=== PATIENT | female | born 1985 | race Caucasian/White ===

== ENCOUNTER 2021-06-24 16:49 | Emergency (ER) | payer OTHER ==
[2021-06-24] MEDS ORDERED: Sodium Chloride 0.9% 10 ML Syringe FLUSH PRN (17:45)
--- NOTE | 2021-06-24 18:20 | EDM.PDOC ---
ED HPI GENERAL MEDICAL PROBLEM - General Chief Complaint: Genitourinary Problem Stated Complaint: PAINFUL URINATION SENT BY [place] Time Seen by Provider: 06/24/21 17:12 Source of Information: Reports: Patient History Limitations: Reports: No Limitations, Other (ED vital signs reveal a temp of 97.9, pulse of 84, respiratory rate of 16, blood pressure 149/99, pulse ox 100% on room air) - History of Present Illness INITIAL COMMENTS - FREE TEXT/NARRATIVE: 36-year-old female presents the emergency department with complaints of urinary symptoms. She was diagnosed with a UTI 6 days ago at [facility] and started on Macrobid. She completed a 5-day course of this however her symptoms have not resolved over that period of time. She states she has had new onset flank pain bilaterally. She has suprapubic tenderness. She states she had chills today and rigors at lunchtime however she does not note any recorded temperature. She states that she has been nauseated but no vomiting. 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 ED EXAM, RENAL/ - Physical Exam Exam: See Below Exam Limited By: No Limitations General Appearance: Alert, WD/WN, No Apparent Distress Ears: Normal External Exam, Hearing Grossly Normal Nose: Normal Inspection Throat/Mouth: Normal Inspection, Normal Lips, Normal Voice, No Airway Compromise Head: Atraumatic Neck: Normal Inspection, Supple Respiratory/Chest: No Respiratory Distress, Lungs Clear, Normal Breath Sounds, No Accessory Muscle Use, Chest Non-Tender Cardiovascular: Normal Peripheral Pulses, Regular Rate, Rhythm, No Edema, No Murmur GI/Abdominal: Normal Bowel Sounds, Soft, No Distention. No: Non-Tender (Suprapubic tenderness) (Female) Exam: Deferred Rectal (Female) Exam: Deferred Back Exam: Normal Inspection, CVA Tenderness (L), CVA Tenderness (R) Extremities: Normal Inspection, Normal Range of Motion, Non-Tender, No Pedal Edema, Normal Capillary Refill Neurological: Alert, Oriented, Normal Cognition Psychiatric: Normal Affect, Normal Mood Skin Exam: Warm, Dry, Intact, Normal Color, No Rash Lymphatic: No Adenopathy Course - Vital Signs Text/Narrative:: Stated above 36-year-old female presents with urinary symptoms who just completed a 5-day course of Macrobid. Patient does have CVA tenderness bilaterally. She also has suprapubic tenderness noted. I have ordered a UA with micro and culture if indicated, we will order a CBC, CMP and a C-reactive protein. We will also obtain CT of the abdomen and pelvis without contrast to rule out stone and pyelonephritis. Last Recorded V/S: Last Vital Signs Temp 97.9 F 06/24/21 17:09 Pulse 84 06/24/21 17:09 Resp 16 06/24/21 17:09 BP 149/99 H 06/24/21 17:09 Pulse Ox 100 06/24/21 17:09 - Orders/Labs/Meds Orders: Active Orders 24 hr Category Date Time Status Sodium Chloride 0.9% [Saline Flush] Med 06/24/21 17:45 Active 10 ml FLUSH ASDIRECTED PRN Saline Lock Insert [OM.PC] Stat Oth 06/24/21 17:45 Ordered Medication Orders Sodium Chloride (Sodium Chloride 0.9% 10 Ml Syringe) 10 ml FLUSH ASDIRECTED PRN PRN Reason: Keep Vein Open Last Admin: 06/24/21 19:31 Dose: 10 ml Documented by: PUNEET Labs: Laboratory Tests 06/24/21 06/24/21 06/24/21 Range/Units 17:20 17:20 17:54 WBC 8.40 (3.98-10.04) K/mm3 RBC 4.64 (3.98-5.22) M/mm3 Hgb 13.5 (11.2-15.7) gm/dl Hct 41.6 (34.1-44.9) % MCV 89.7 (79.4-94.8) fl MCH 29.1 (25.6-32.2) pg MCHC 32.5 (32.2-35.5) g/dl RDW Std Deviation 47.0 H (36.4-46.3) fL Plt Count 256 (182-369) K/mm3 MPV 11.9 (9.4-12.3) fl Neut % (Auto) 68.0 (34.0-71.1) % Lymph % (Auto) 23.2 (19.3-51.7) % Alfalfa % (Auto) 7.3 (4.7-12.5) % Eos % (Auto) 1.0 (0.7-5.8) Baso % (Auto) 0.4 (0.1-1.2) % Neut # (Auto) 5.72 (1.56-6.13) K/mm3 Lymph # (Auto) 1.95 (1.18-3.74) K/mm3 Alfalfa # (Auto) 0.61 H (0.24-0.36) K/mm3 Eos # (Auto) 0.08 (0.04-0.36) K/mm3 Baso # (Auto) 0.03 (0.01-0.08) K/mm3 Sodium (136-145) mEq/L Potassium (3.5-5.1) mEq/L Chloride (98-107) mEq/L Carbon Dioxide (21-32) mEq/L Anion Gap (5-15) BUN (7-18) mg/dL Creatinine (0.55-1.02) mg/dL Est Cr Clr Drug Dosing mL/min Estimated GFR (MDRD) (>60) mL/min BUN/Creatinine Ratio (14-18) Glucose (70-99) mg/dL Calcium (8.5-10.1) mg/dL Total Bilirubin (0.2-1.0) mg/dL AST (15-37) U/L ALT (14-59) U/L Alkaline Phosphatase (46-116) U/L C-Reactive Protein (<1.0) mg/dL Total Protein (6.4-8.2) g/dl Albumin (3.4-5.0) g/dl Globulin gm/dL Albumin/Globulin Ratio (1-2) Urine Color Yellow (Yellow) Urine Appearance Slt cloudy H (Clear) Urine pH 6.0 (5.0-8.0) Ur Specific [place] > or = 1.030 (1.005-1.030) Urine Protein Negative (Negative) Urine Glucose (UA) Negative (Negative) Urine Ketones Negative (Negative) Urine Occult Blood Negative (Negative) Urine Nitrite Negative (Negative) Urine Bilirubin Negative (Negative) Urine Urobilinogen 0.2 (0.2-1.0) Ur Leukocyte Esterase Negative (Negative) Urine HCG, Qual Negative (NEGATIVE) 06/24/21 Range/Units 17:54 WBC (3.98-10.04) K/mm3 RBC (3.98-5.22) M/mm3 Hgb (11.2-15.7) gm/dl Hct (34.1-44.9) % MCV (79.4-94.8) fl MCH (25.6-32.2) pg MCHC (32.2-35.5) g/dl RDW Std Deviation (36.4-46.3) fL Plt Count (182-369) K/mm3 MPV (9.4-12.3) fl Neut % (Auto) (34.0-71.1) % Lymph % (Auto) (19.3-51.7) % Alfalfa % (Auto) (4.7-12.5) % Eos % (Auto) (0.7-5.8) Baso % (Auto) (0.1-1.2) % Neut # (Auto) (1.56-6.13) K/mm3 Lymph # (Auto) (1.18-3.74) K/mm3 Alfalfa # (Auto) (0.24-0.36) K/mm3 Eos # (Auto) (0.04-0.36) K/mm3 Baso # (Auto) (0.01-0.08) K/mm3 Sodium 144 (136-145) mEq/L Potassium 4.1 (3.5-5.1) mEq/L Chloride 110 H (98-107) mEq/L Carbon Dioxide 22 (21-32) mEq/L Anion Gap 16.1 H (5-15) BUN 14 (7-18) mg/dL Creatinine 1.0 (0.55-1.02) mg/dL Est Cr Clr Drug Dosing 77.08 mL/min Estimated GFR (MDRD) > 60 (>60) mL/min BUN/Creatinine Ratio 14.0 (14-18) Glucose 100 H (70-99) mg/dL Calcium 8.2 L (8.5-10.1) mg/dL Total Bilirubin 0.2 (0.2-1.0) mg/dL AST 10 L (15-37) U/L ALT 17 (14-59) U/L Alkaline Phosphatase 56 (46-116) U/L C-Reactive Protein <0.2 (<1.0) mg/dL Total Protein 7.4 (6.4-8.2) g/dl Albumin 3.7 (3.4-5.0) g/dl Globulin 3.7 gm/dL Albumin/Globulin Ratio 1.0 (1-2) Urine Color (Yellow) Urine Appearance (Clear) Urine pH (5.0-8.0) Ur Specific [place] (1.005-1.030) Urine Protein (Negative) Urine Glucose (UA) (Negative) Urine Ketones (Negative) Urine Occult Blood (Negative) Urine Nitrite (Negative) Urine Bilirubin (Negative) Urine Urobilinogen (0.2-1.0) Ur Leukocyte Esterase (Negative) Urine HCG, Qual (NEGATIVE) Meds: Medications Generic Name Dose Route Start Last Admin Trade Name Freq PRN Reason Stop Dose Admin Sodium Chloride 10 ml 06/24/21 17:45 06/24/21 19:31 Sodium Chloride 0.9% 10 Ml Syringe FLUSH 10 ml ASDIRECTED PRN Administration Keep Vein Open - Re-Assessments/Exams Free Text/Narrative Re-Assessment/Exam: 06/24/21 19:31 Hematology reveals a WBC of 8.40, hemoglobin 13.5, hematocrit 41.6, platelet count 256 Chemistry reveals a sodium of 144, potassium 4.1, chloride 110, carbon dioxide 22, anion gap 16.1, BUN 14, creatinine 1.0, glucose 100, calcium 8.2, total bilirubin 0.2, AST 10, ALT 17, alk phos 56, C-reactive protein less than 0.2 Urinalysis is negative, urine is negative Radiologist impression CT of the abdomen and pelvis: Small nonobstructing stone is noted within the lower right kidney measuring about 2.5 mm. Even smaller calcification is noted within the mid left kidney compatible with nonobstructing stone. No ureteral dilation or ureteral calculi are seen. Visualized lung bases show nothing acute. Noncontrast appearance of the liver and spleen show no focal abnormality. Adrenal glands show no nodule. Pancreas shows no abnormality. Gallbladder contains no calcified gallstones. Abdominal aorta shows no aneurysm. No retroperitoneal adenopathy or mesenteric abnormalities are seen. Minimal fat-containing umbilical hernia is noted. Appendix is seen which is normal in size. No pelvic mass or adenopathy is seen. Slight increase stool is noted throughout most of the colon. Bone window settings were reviewed which appeared normal for the patient's age. Impression: 1. Small nonobstructing stone within each kidney. 2. No ureteral dilation or ureteral stone is seen. 3. Mild increased stool within the colon. 4. No acute abnormality is otherwise seen on noncontrast CT study of the abdomen and pelvis. 06/24/21 19:33 The patient will be discharged to home with recommendations that she drink one half bottle of magnesium citrate. If she does not have a bowel movement within 3 hours she is to drink the remaining bottle. This likely would cause her to have a good bowel movement and decrease her abdominal discomfort. Departure - Departure Time of Disposition: 19:42 Disposition: Home, Self-Care 01 Condition: Good Clinical Impression: Constipation Qualifiers: Constipation type: slow transit constipation Qualified Code(s): K59.01 - Slow transit constipation - Discharge Information Instructions: Constipation, Adult, [id number] Referrals: Jann Stephens MD [Primary Care Provider] - Forms: ED Department Discharge Additional Instructions: You were seen in the emergency department today with complaints of kidney pain and suprapubic tenderness. Labs as well as urinalysis were completed today and these were unremarkable. CT scan of the abdomen was completed which was also unremarkable however it did show a moderate amount of stool in your colon. This could very likely be the cause of your discomfort. Recommend that you purchase a bottle of magnesium citrate. Drink one half of the bottle and if you do not have a bowel movement within 3 hours recommend drinking the remainder of the bottle. This should give you a good bowel movement. Also recommend that you take 1 scoop of MiraLAX daily for the next 2 weeks. This should help to get your bowels back on track. Be sure to drink plenty of fluids and eat a high- fiber diet. Sepsis Event Note (ED) - Evaluation Sepsis Screening Result: No Definite Risk - Focused Exam Vital Signs: Vital Signs Temp Pulse Resp BP Pulse Ox 06/24/21 17:09 97.9 F 84 16 149/99 H 100 - My Orders Last 24 Hours: My Active Orders 06/24/21 17:45 Sodium Chloride 0.9% [Saline Flush] 10 ml FLUSH ASDIRECTED PRN Saline Lock Insert [OM.PC] Stat - Assessment/Plan Last 24 Hours: My Active Orders 06/24/21 17:45 Sodium Chloride 0.9% [Saline Flush] 10 ml FLUSH ASDIRECTED PRN Saline Lock Insert [OM.PC] Stat
--- NOTE | 2021-06-24 19:10 | CT ---
CT abdomen and pelvis Technique: Multiple axial sections through the abdomen and pelvis were obtained from above the dome of the diaphragm inferiorly through the pubic symphysis. Intravenous and oral contrast were not utilized. Study has been performed as a ureteral stone protocol. Reconstructed coronal and sagittal images were obtained. Comparison: No prior abdominal imaging is available. Findings: Small nonobstructing stone is noted within the lower right kidney measuring about 2.5 mm. Even smaller calcification is noted within the mid left kidney compatible with nonobstructing stone. No ureteral dilatation or ureteral calculi are seen. Visualized lung bases show nothing acute. Noncontrast appearance of the liver and spleen show no focal abnormality. Adrenal glands show no nodule. Pancreas shows no abnormality. Gallbladder contains no calcified gallstones. Abdominal aorta shows no aneurysm. No retroperitoneal adenopathy or mesenteric abnormalities are seen. Minimal fat-containing umbilical hernia is noted. Appendix is seen which is normal in size. No pelvic mass or adenopathy is seen. Slight increased stool is noted throughout most of the colon. Bone window settings were reviewed which appear within normal limits for the patient's age. Impression: 1. Small nonobstructing stone within each kidney. 2. No ureteral dilatation or ureteral stone is seen. 3. Mild increased stool within the colon. 4. No acute abnormality is otherwise seen on noncontrast CT study of the abdomen and pelvis. Diagnostic code #2
== END 2021-06-24 19:55 | disposition home or self-care (01) ==
LOC: JD.ED 16:49
DX: K59.01 Slow transit constipation (principal); Z88.5 Allergy status to narcotic agent
CPT/HCPCS: 36415; 74176; 74176-26; 80053; 81003; 81025; 85025; 86140; 99283; 99284-25

== ENCOUNTER 2022-02-05 10:08 | Emergency (ER) | payer OTHER ==
[2022-02-05] MEDS ORDERED: HYDROmorphone 0.5 MG/0.5 ML Syringe IVPUSH ONE ×3 (10:49→13:17)
[2022-02-05] MEDS ORDERED: Iopamidol 612 MG/ML 100 ML Bottle IVPUSH ONE (10:55)
[2022-02-05] MEDS ORDERED: Sodium Chloride 0.9% 10 ML Syringe FLUSH ONE (10:55)
[2022-02-05] MEDS ORDERED: Sodium Chloride 0.9% 100 ML IV SCH (11:00)
[2022-02-05] MEDS: Sodium Chloride 0.9% 10 ML Syringe FLUSH PRN ×2 (11:08→11:16)
== END 2022-02-05 13:35 ==
LOC: JD.ED 10:08
DX: M54.16 Radiculopathy, lumbar region (principal); Z88.5 Allergy status to narcotic agent
CPT/HCPCS: 36415; 72132; 80053; 85007; 85027; 86140; 96374; 96376; 99284; J1170; Q9967; 99285; J3490

== ENCOUNTER 2022-12-29 11:46 | Emergency (ER) | payer BC, OTHER ==
[2022-12-29] MEDS ORDERED: diphenhydrAMINE 50 MG/ML SDV IVPUSH ONE (12:25)
[2022-12-29] MEDS ORDERED: HYDROmorphone 0.5 MG/0.5 ML Syringe IVPUSH ONE (12:25)
[2022-12-29] MEDS ORDERED: Metoclopramide 10 MG/2 ML SDV IVPUSH ONE (12:25)
[2022-12-29] MEDS ORDERED: Sodium Chloride 0.9% 1,000 ML IV ONE (12:25)
[2022-12-29] MEDS ORDERED: Ketorolac 30 MG/ML SDV IVPUSH ONE (12:25)
[2022-12-29] MEDS ORDERED: Sodium Chloride 0.9% 10 ML Syringe FLUSH PRN (12:26)
== END 2022-12-29 14:20 | disposition home or self-care (01) ==
LOC: JD.ED 11:46
DX: J32.9 Chronic sinusitis, unspecified (principal); Z88.5 Allergy status to narcotic agent
CPT/HCPCS: 36415; 70486; 80053; 84443; 85025; 93005; 96361; 96374; 96375; 99284; J1170; J1200; J1885; J2765; J3490; J7030

== ENCOUNTER 2023-06-13 08:06 | Day surgery (SDC) | payer BC, OTHER ==
[~2023-06-13 08:06] MED LIST: Lactated Ringers 1,000 ML IV SCH; Sodium Chloride 0.9% 10 ML Syringe FLUSH PRN; Sodium Chloride 0.9% 10 ML Syringe FLUSH SCH
[2023-06-13 08:47] LABS: BASOPHILS ABSOLUTE AUTO 0.04 K/mm3 (0.01-0.08); BASOPHILS PERCENT AUTO 0.6 % (0.1-1.2); EOSINOPHILS ABSOLUTE AUTO 0.16 K/mm3 (0.04-0.36); EOSINOPHILS PERCENT AUTO 2.4 (0.7-5.8); HEMOGLOBIN 14.5 gm/dl (11.2-15.7); IMMATURE GRAN ABSOLUTE AUTO 0.03 K/mm3 (0.00-0.10); IMMATURE GRAN PERCENT AUTO 0.5 % (<=1.0); LYMPHOCYTES ABSOLUTE AUTO 1.75 K/mm3 (1.18-3.74); LYMPHOCYTES PERCENT AUTO 26.3 % (19.3-51.7); MEAN CORPUSCULAR HEMOGLOBIN 30.2 pg (25.6-32.2); MEAN CORPUSCULAR VOLUME 91.7 fl (79.4-94.8); MEAN PLATELET VOLUME 11.3 fl (9.4-12.3); MONOCYTES ABSOLUTE AUTO 0.55 K/mm3 (0.24-0.36); MONOCYTES PERCENT AUTO 8.3 % (4.7-12.5); NEUTROPHILS ABSOLUTE AUTO 4.12 K/mm3 (1.56-6.13); NEUTROPHILS PERCENT AUTO 61.9 % (34.0-71.1); PLATELET COUNT,PLT 278 K/mm3 (182-369); WHITE BLOOD CELL COUNT,WBC 6.65 K/mm3 (3.98-10.04)
[2023-06-13 09:02] LABS: ANION GAP 12.8 (5-15); BLOOD UREA NITROGEN,BUN 15 mg/dL (7-18); BUN/CREATININE RATIO 16.7 (14-18); CALCIUM 9.1 mg/dL (8.5-10.1); CARBON DIOXIDE,CO2 28 mEq/L (21-32); CHLORIDE,CL 102 mEq/L (98-107); CREATININE 0.9 mg/dL (0.55-1.02); ESTIMATED GFR 85 mL/min (>60); GLUCOSE RANDOM 90 mg/dL (70-99); POTASSIUM,K 3.8 mEq/L (3.5-5.1); SODIUM,NA 139 mEq/L (136-145)
[2023-06-13] MEDS ORDERED: Bupivacaine 0.25%/EPINEPHrine 1:200,000 30 ML SDV ONE (09:05)
[2023-06-13] MEDS ORDERED: Bupivacaine 0.5% 30 ML SDV ONE (09:05)
[2023-06-13] MEDS ORDERED: Midazolam 1 MG/ML 2 ML SDV ONE (09:17)
[2023-06-13] MEDS ORDERED: Propofol 200 MG/20 ML SDV ONE (09:17)
[2023-06-13] MEDS ORDERED: fentaNYL 250 MCG/5 ML SDV ONE (09:17)
[2023-06-13] MEDS ORDERED: Lidocaine 1% 6 ML ONE (09:18)
[2023-06-13] MEDS ORDERED: Rocuronium 50 MG/5 ML Vial ONE (09:27)
[2023-06-13] MEDS ORDERED: ceFAZolin 2 GM Vial ONE (09:45)
[2023-06-13] MEDS ORDERED: Ketamine 500 mg/10 ML MDV ONE (09:52)
[2023-06-13] MEDS ORDERED: Lactated Ringers 1,000 ML ONE (10:10)
[2023-06-13] MEDS ORDERED: Dexamethasone 4 MG/ML 5 ML MDV ONE (10:17)
[2023-06-13] MEDS ORDERED: Ondansetron 4 MG/2 ML SDV ONE (10:17)
[2023-06-13] MEDS ORDERED: fentaNYL 100 MCG/2 ML SDV IVPUSH PRN (10:30)
[2023-06-13] MEDS ORDERED: HYDROmorphone 0.5 MG/0.5 ML Syringe IVPUSH PRN (10:30)
[2023-06-13] MEDS ORDERED: Neostigmine Methylsulfate 10 MG/10 ML MDV ONE (10:59)
[2023-06-13] MEDS ORDERED: Ketorolac 30 MG/ML SDV ONE (11:40)
[2023-06-13] MEDS ORDERED: Acetaminophen/oxyCODONE 325-5 MG Tab PO PRN (12:33)
== END 2023-06-13 15:05 | disposition home or self-care (01) ==
LOC: JD.SDS 08:06
PROVIDERS: ATTEND Obstetrics & Gynecology
DX: N83.8 Other noninflammatory disorders of ovary, fallopian tube and broad ligament (principal); N73.6 Female pelvic peritoneal adhesions (postinfective); M79.7 Fibromyalgia; K58.9 Irritable bowel syndrome, unspecified; F41.0 Panic disorder [episodic paroxysmal anxiety]; G43.909 Migraine, unspecified, not intractable, without status migrainosus; Z98.890 Other specified postprocedural states; Z87.891 Personal history of nicotine dependence; Z88.5 Allergy status to narcotic agent; Z88.8 Allergy status to other drugs, medicaments and biological substances; Z79.899 Other long term (current) drug therapy
CPT/HCPCS: 36415; 57283; 58552; 80048; 85025; 86850; 86900; 86901; A9270; J0690; J1100; J1170; J1885; J2250; J2405; J2704; J2710; J3010; J3490; J7120; 00944

== ENCOUNTER 2023-09-07 12:57 | Emergency (ER) | payer OTHER ==
[2023-09-07 13:36] LABS: APPEARANCE,URINE CLEAR (Clear); BILIRUBIN,URINE NEGATIVE (Negative); COLOR,URINE YELLOW (Yellow); GLUCOSE,URINE NEGATIVE (Negative); KETONES,URINE NEGATIVE (Negative); LEUKOCYTE ESTERASE,URINE NEGATIVE (Negative); NITRITE,URINE NEGATIVE (Negative); OCCULT BLOOD,URINE NEGATIVE (Negative); PH,URINE 5.5 (5.0-8.0); PROTEIN,URINE NEGATIVE (Negative); UROBILINOGEN,URINE 0.2 (0.2-1.0)
[2023-09-07 13:40] LABS: BASOPHILS ABSOLUTE AUTO 0.1 K/mm3 (0.0-0.2); BASOPHILS PERCENT AUTO 0.6 % (0.0-1.0); EOSINOPHILS ABSOLUTE AUTO 0.1 K/mm3 (0.0-0.4); EOSINOPHILS PERCENT AUTO 1.4 % (0.0-6.0); HEMATOCRIT 40.2 % (37.0-47.0); HEMOGLOBIN 13.6 gm/dl (12.0-16.0); IMMATURE GRAN ABSOLUTE AUTO 0.08 K/mm3 (0.00-0.05); LYMPHOCYTES ABSOLUTE AUTO 1.9 K/mm3 (1.0-4.8); LYMPHOCYTES PERCENT AUTO 24.3 % (24.0-44.0); MEAN CORPUSCULAR HEMOGLOBIN 30.7 pg (28.0-32.0); MEAN CORPUSCULAR HGB CONC 33.8 g/dl (32.0-36.0); MEAN CORPUSCULAR VOLUME 90.7 fl (83.0-99.0); MEAN PLATELET VOLUME 11.3 fl (9.4-12.3); MONOCYTES ABSOLUTE AUTO 0.5 K/mm3 (0.0-0.8); NEUTROPHILS ABSOLUTE AUTO 5.1 K/mm3 (1.8-7.7); NEUTROPHILS PERCENT AUTO 66.7 % (41.0-71.0); PLATELET COUNT,PLT 278 K/mm3 (150-400); RED BLOOD CELL COUNT 4.43 M/mm3 (4.10-5.30)
[2023-09-07 13:57] LABS: ALANINE AMINOTRANSFERASE,ALT 18 U/L (14-59); ALBUMIN 3.7 g/dl (3.4-5.0); ALKALINE PHOSPHATASE 73 U/L (46-116); ASPARTATE AMNIOTRANSFERASE,AST 14 U/L (15-37); BILIRUBIN TOTAL 0.3 mg/dL (0.2-1.0); BLOOD UREA NITROGEN,BUN 12 mg/dL (7-18); BUN/CREATININE RATIO 13.3 (14-18); CALCIUM 9.2 mg/dL (8.5-10.1); CARBON DIOXIDE,CO2 28 mEq/L (21-32); CHLORIDE,CL 103 mEq/L (98-107); CREATININE 0.9 mg/dL (0.55-1.02); ESTIMATED GFR 85 mL/min (>60); GLUCOSE RANDOM 91 mg/dL (70-99); PROTEIN TOTAL,TP 7.6 g/dl (6.4-8.2); SODIUM,NA 139 mEq/L (136-145)
[2023-09-07 14:03] LABS: C-REACTIVE PROTEIN < 0.2 mg/dL (<1.0)
== END 2023-09-07 14:34 | disposition home or self-care (01) ==
LOC: JD.ED 12:57
DX: N34.2 Other urethritis (principal); Z79.899 Other long term (current) drug therapy; Z88.5 Allergy status to narcotic agent; Z88.8 Allergy status to other drugs, medicaments and biological substances
CPT/HCPCS: 36415; 80053; 81003; 85025; 86140; 99283; 99284